=== PATIENT | female | born 1980 | race American Indian/Alaskan Native ===

== ENCOUNTER 2017-02-07 16:08 | Emergency (ER) | payer SELFPAY ==
[2017-02-07 16:26] VITALS: BP 130/92
[2017-02-07] MEDS ORDERED: HYDROGEN PEROXIDE TP ONE (17:55)
[2017-02-07] MEDS ORDERED: HYDROGEN PEROXIDE ONE (17:56)
--- NOTE | 2017-02-07 18:04 | Emergency Department Report ---
ED ENT HPI - General Chief complaint: Earache Stated complaint: EARACHE Time Seen by Provider: 02/07/17 17:40 Source: patient Mode of arrival: Ambulatory Limitations: No Limitations - History of Present Illness Initial comments: This is a 36-year-old female nontoxic, well nourished in appearance, no acute signs of distress presents to the ED with c/o of left earache x3 days. Patient describes pain as aching with level of 8/10. Patient denies any trauma to the ear. Denies any hearing loss, hearing changes, ear discharge, mastoid tenderness, tragus tenderness, fever, chills, nausea, vomiting, chest pain shortness of breath. Patient stated she believes she was in the shower and developed pain every since then. Patient denies any allergies or past medical history. MD complaint: ear pain -: days(s) (3) Location: L ear Severity: mild Severity scale (0 -10): 8 Quality: aching Consistency: constant Improves with: none Worsens with: none Associated Symptoms: denies: fever, cough, gum swelling, toothache, pain with swallowing, sore throat, tinnitus, hearing loss, discharge from ear, rhinorrhea - Related Data Previous Rx's Medication Instructions Recorded Last Taken Type RX: Amoxicillin [Trimox CAP] 500 mg PO Q12H #20 capsule 02/07/17 Unknown Rx RX: Ofloxacin 2 drops OS DAILY 10 Days 02/07/17 Unknown Rx ED Dental HPI - General Chief complaint: Earache Stated complaint: EARACHE Time Seen by Provider: 02/07/17 17:40 Source: patient Mode of arrival: Ambulatory Limitations: No Limitations - Related Data Previous Rx's Medication Instructions Recorded Last Taken Type RX: Amoxicillin [Trimox CAP] 500 mg PO Q12H #20 capsule 02/07/17 Unknown Rx RX: Ofloxacin 2 drops OS DAILY 10 Days 02/07/17 Unknown Rx ED Review of Systems ROS: Stated complaint: EARACHE Other details as noted in HPI Constitutional: denies: chills, fever Eyes: denies: eye pain, eye discharge, vision change ENT: ear pain. denies: throat pain Respiratory: denies: cough, shortness of breath, wheezing Cardiovascular: denies: chest pain, palpitations Endocrine: no symptoms reported Gastrointestinal: denies: abdominal pain, nausea, diarrhea Genitourinary: denies: urgency, dysuria, discharge Musculoskeletal: denies: back pain, joint swelling, arthralgia Skin: denies: rash, lesions Neurological: denies: headache, weakness, paresthesias Psychiatric: denies: anxiety, depression Hematological/Lymphatic: denies: easy bleeding, easy bruising ED Past Medical Hx - Past Medical History Previous Medical History?: No - Surgical History Past Surgical History?: No - Social History Smoking Status: Never Smoker Substance Use Type: Alcohol - Medications Home Medications: Home Medications Medication Instructions Recorded Confirmed Last Taken Type RX: Amoxicillin [Trimox CAP] 500 mg PO Q12H #20 capsule 02/07/17 Unknown Rx RX: Ofloxacin 2 drops OS DAILY 10 Days 02/07/17 Unknown Rx ED Physical Exam - General Limitations: No Limitations General appearance: alert, in no apparent distress - Head Head exam: Present: atraumatic, normocephalic - Eye Eye exam: Present: normal appearance, PERRL, EOMI. Absent: scleral icterus, conjunctival injection, nystagmus, periorbital swelling, periorbital tenderness - ENT ENT exam: Present: normal exam, normal orophraynx, mucous membranes moist, normal external ear exam - Expanded ENT Exam Expanded Ear exam: Present: normal external inspection TM/Canal exam: Erythema: Left TM, Bulging: Left TM, Cerumen Impaction: Left TM Mouth exam: Present: normal external inspection, tongue normal. Absent: drooling, trismus, muffled voice, tongue elevation, laceration Teeth exam: Present: normal inspection Throat exam: Positive: normal inspection. Negative: tonsillar erythema, tonsillar exudate, R peritonsillar mass, L peritonsillar mass - Neck Neck exam: Present: normal inspection, full ROM. Absent: tenderness, meningismus, lymphadenopathy, thyromegaly - Respiratory Respiratory exam: Present: normal lung sounds bilaterally. Absent: respiratory distress, wheezes, rales, rhonchi, stridor, chest wall tenderness, accessory muscle use, decreased breath sounds, prolonged expiratory - Cardiovascular Cardiovascular Exam: Present: regular rate, normal rhythm, normal heart sounds. Absent: bradycardia, tachycardia, irregular rhythm, systolic murmur, diastolic murmur, rubs, gallop - GI/Abdominal GI/Abdominal exam: Present: soft, normal bowel sounds - Extremities Exam Extremities exam: Present: normal inspection - Back Exam Back exam: Present: normal inspection - Neurological Exam Neurological exam: Present: alert, oriented X3 - Psychiatric Psychiatric exam: Present: normal affect, normal mood - Skin Skin exam: Present: warm, dry, intact, normal color. Absent: rash - Other Other exam information: no mastoid tenderness or tragus tenderness. ED Course Vital Signs 02/07/17 16:24 Temperature 98.9 F Pulse Rate 79 Respiratory 18 Rate Blood Pressure 130/92 O2 Sat by Pulse 100 Oximetry - Reevaluation(s) Reevaluation #1: 02/07/17 18:04 Patient is speaking in full sentences with no signs of distress noted. ED Medical Decision Making - Medical Decision Making There is a female that presents with cerumen impaction of left ear and left otitis media. Cerumen impaction has been removed using warm water mixed with hydroperoxide and ear curettes. Left tympanic membrane is bulging with erythema. Patient be treated with amoxicillin 10 days. Patient was instructed to follow-up with a primary care doctor in 3-5 days or if symptoms worsen and continue return to emergency room as soon as possible. At time time of discharge, the patient does not seem toxic or ill in appearance. No acute signs of distress noted. Patient agrees to discharge treatment plan of care. No further questions noted by the patient. Critical care attestation.: If time is entered above; I have spent that time in minutes in the direct care of this critically ill patient, excluding procedure time. ED Disposition Clinical Impression: Cerumen impaction Qualifiers: Laterality: left Qualified Code(s): H61.22 - Impacted cerumen, left ear Otitis media Qualifiers: Otitis media type: unspecified Laterality: left Qualified Code(s): H66.92 - Otitis media, unspecified, left ear Disposition: DC-01 TO HOME OR SELFCARE Is pt being admited?: No Does the pt Need Aspirin: No Condition: Stable Instructions: Amoxicillin (By mouth), Cerumen Impaction (ED), Otitis Media (ED) Additional Instructions: Follow-up with a primary care doctor in 3-5 days or if symptoms worsen and continue return to emergency room as soon as possible. Prescriptions: RX: Amoxicillin [Trimox CAP] 500 mg PO Q12H #20 capsule RX: Ofloxacin 2 drops OS DAILY 10 Days Referrals: PRIMARY CARE, [Primary Care Provider] - 3-5 Days KJ FITZGERALD MD [Staff Physician] - 3-5 Days [facility] [Outside] - 3-5 Days [facility] [Outside] - 3-5 Days Forms: Work/School Release Form(ED)
== END 2017-02-07 18:36 | disposition home or self-care (01) ==
LOC: ED 16:08
DX: H61.22 Impacted cerumen, left ear (principal); H66.92 Otitis media, unspecified, left ear
CPT/HCPCS: 99282

== ENCOUNTER 2018-03-23 22:29 | Emergency (ER) | payer SELFPAY ==
--- NOTE | 2018-03-24 04:41 | Emergency Department Report ---
ED Fall HPI - General Chief Complaint: Fall Stated Complaint: BACK PAIN DUE TO SLIP AND FALL Time Seen by Provider: 03/24/18 04:25 Source: patient Mode of arrival: Ambulatory - History of Present Illness Initial Comments: 37-year-old [place] female presents to the emergency room reporting that she had a [place] and can't [place] as she has slipped on lotion that was in on e of the [place]. Patient reports that when she landed she landed on her left side. She complains of left bicep pain and left side back pain. Patient denies any loss of consciousness reports her pain is 7 out of 10. She reports no past medical history currently takes no medications on a daily basis has no known drug allergies. MD Complaint: fall -: Last night Fall From: standing Fall Witnessed: yes, by family Place Fall Occurred: other ([place]) Loss of Consciousness: none Prolonged Down Time?: no Symptoms Prior to Fall: none Location: back Location - Extremities: Left: Shoulder, Hand, Right: Hand Severity scale (0 -10): 7 Quality: aching Context: tripped/slipped (on lotion on the floor) Associated Symptoms: denies. denies: headache, neck pain, numbness, weakness, shortness of breath, abdominal pain, hematuria, unable to walk - Related Data Previous Rx's Medication Instructions Recorded Last Taken Type Amoxicillin [Trimox CAP] 500 mg PO Q12H #20 capsule 02/07/17 Unknown Rx Ofloxacin 2 drops OS DAILY 10 Days drops 02/07/17 Unknown Rx Ibuprofen [Motrin 600 MG tab] 600 mg PO Q8H PRN #21 tablet 03/24/18 Unknown Rx Allergies Allergy/AdvReac Type Severity Reaction Status Date / Time No Known Allergies Allergy Unverified 03/24/18 00:05 ED Review of Systems ROS: Stated complaint: BACK PAIN DUE TO SLIP AND FALL Other details as noted in HPI Comment: All other systems reviewed and negative Musculoskeletal: back pain, arthralgia ED Past Medical Hx - Past Medical History Previous Medical History?: No - Surgical History Past Surgical History?: No - Social History Smoking Status: Never Smoker Substance Use Type: None - Medications Home Medications: Home Medications Medication Instructions Recorded Confirmed Last Taken Type Amoxicillin [Trimox CAP] 500 mg PO Q12H #20 capsule 02/07/17 Unknown Rx Ofloxacin 2 drops OS DAILY 10 Days drops 02/07/17 Unknown Rx Ibuprofen [Motrin 600 MG tab] 600 mg PO Q8H PRN #21 tablet 03/24/18 Unknown Rx ED Physical Exam - General Limitations: No Limitations General appearance: alert, in no apparent distress - Head Head exam: Present: atraumatic, normocephalic - Eye Eye exam: Present: EOMI - ENT ENT exam: Present: mucous membranes moist - Respiratory Respiratory exam: Present: normal lung sounds bilaterally. Absent: respiratory distress - Cardiovascular Cardiovascular Exam: Present: regular rate, normal rhythm. Absent: systolic murmur, diastolic murmur, rubs, gallop - Expanded Upper Extremity Exam Left Shoulder Exam: Present: full ROM, tenderness (eyes). Absent: swelling, abrasion, laceration, ecchymosis, deformity, crepidus, dislocation, erythema, tenderness over AC joint Upper Arm exam: Present: full ROM, tenderness. Absent: swelling, ecchymosis, deformity Elbow exam: Present: normal inspection, full ROM Forearm Wrist exam: Present: normal inspection, full ROM Hand Wrist exam: Present: normal inspection, full ROM. Absent: tenderness, swelling, abrasion Vascular: Present: normal capillary refill. Absent: vascular compromise Right Hand Wrist exam: Present: normal inspection, full ROM. Absent: tenderness, swelling, abrasion, ecchymosis, deformity Vascular: Present: normal capillary refill. Absent: vascular compromise - Back Exam Back exam: Present: full ROM, muscle spasm, paraspinal tenderness - Neurological Exam Neurological exam: Present: alert, oriented X3 - Psychiatric Psychiatric exam: Present: normal affect, normal mood ED Course Vital Signs 03/24/18 00:05 Temperature 99.1 F Pulse Rate 87 Respiratory 20 Rate Blood Pressure 138/94 O2 Sat by Pulse 98 Oximetry ED Medical Decision Making - Radiology Data FINDINGS: Three views thoracic spine Thoracic kyphosis is within normal limits. Vertebral body heights intervertebral disc spaces are preserved. No fractures. Incomplete evaluation of the chest is unremarkable. IMPRESSION: Unremarkable thoracic spine radiographs. Consider additional imaging for worsening/persistent symptoms. Transcribed By: ANKIT Dictated By: GIANNA JIMENEZ MD Electronically Authenticated By: GIANNA JIMENEZ MD Signed Date/Time: 03/24/18457 DD/ 8 TD/TT: 03/24/18458 FINAL REPORT EXAM: XR HAND BILAT 2V HISTORY: fall COMPARISONS: None. FINDINGS: Four views left hand No bone lesion, periosteal reaction, or fracture. No deformity or gross malalignment. IMPRESSION: No fracture in the left hand. Transcribed By: ANKIT Dictated By: GIANNA JIMENEZ MD Electronically Authenticated By: GIANNA JIMENEZ MD Signed Date/Time: 03/24/18499 DD/ 1 TD/TT: 03/24/18501 - Medical Decision Making Patient has been evaluated by this provider in fast track. Ibuprofen 600 mg given for pain management Discussed the patient that x-rays were normal examination Patient be discharged on ibuprofen and to follow up with her primary care provider if symptoms persist or gets worse. Critical care attestation.: If time is entered above; I have spent that time in minutes in the direct care of this critically ill patient, excluding procedure time. ED Disposition Clinical Impression: Fall Qualifiers: Encounter type: initial encounter Qualified Code(s): W19.XXXA - Unspecified fall, initial encounter Strain of back Qualifiers: Encounter type: initial encounter Qualified Code(s): S39.012A - Strain of muscle, fascia and tendon of lower back, initial encounter Disposition: - TO HOME OR SELFCARE Is pt being admited?: No Does the pt Need Aspirin: No Condition: Stable Instructions: Muscle Strain (ED), Fall Prevention (ED) Additional Instructions: Please is take pain medication as needed. Please allow her body to rest. Please follow-up to primary care provider for symptoms persist or gets worse. Prescriptions: Ibuprofen [Motrin 600 MG tab] 600 mg PO Q8H PRN #21 tablet PRN Reason: Pain , Severe (7-10) Referrals: PRIMARY CARE, [Primary Care Provider] - 3-5 Days Your,Provider [Other] - 3-5 Days Forms: Work/School Release Form(ED)
--- NOTE | 2018-03-24 04:58 | XRay Report ---
FINAL REPORT EXAM: XR SPINE THORACIC 2V HISTORY: fall COMPARISONS: None FINDINGS: Three views thoracic spine Thoracic kyphosis is within normal limits. Vertebral body heights intervertebral disc spaces are pres erved. No fractures. Incomplete evaluation of the chest is unremarkable. IMPRESSION: Unremarkable thoracic spine radiographs. Consider additional imaging for worsening/persistent symptom s.
[2018-03-24] MEDS ORDERED: MOTRIN PO ONE (04:59)
--- NOTE | 2018-03-24 05:00 | XRay Report ---
FINAL REPORT EXAM: XR HAND BILAT 2V HISTORY: fall COMPARISONS: None. FINDINGS: Four views left hand No bone lesion, periosteal reaction, or fracture. No deformity or gross malalignment. IMPRESSION: No fracture in the left hand.
[2018-03-24 06:28] VITALS: BP 140/100
== END 2018-03-24 06:27 | disposition home or self-care (01) ==
LOC: ED 22:29
DX: S29.012A Strain of muscle and tendon of back wall of thorax, initial encounter (principal); M25.512 Pain in left shoulder; W01.0XXA Fall on same level from slipping, tripping and stumbling without subsequent striking against object, initial encounter; Y93.89 Activity, other specified; Y92.89 Other specified places as the place of occurrence of the external cause; Y99.8 Other external cause status
CPT/HCPCS: 72070